=== PATIENT | male | born 1980 | race African-American/Black ===

== ENCOUNTER 2024-09-16 09:09 | Emergency (ER) | payer MEDICAID ==
[~2024-09-16] VITALS: Ht 170.2 cm; Wt 67.7 kg
[2024-09-16 09:20] VITALS: BP 131/100; PULSE 94; O2SAT 100
[2024-09-16 10:14] VITALS: RESP 16
[2024-09-16] MEDS: ketorolac trometh 15mg/ml vial 15 MG/ML ML IM ONE (10:14)
[2024-09-16 10:50] VITALS: TEMP 97.8
== END 2024-09-16 11:00 | disposition home or self-care (01) ==
LOC: ER 09:10
DX: M25.571 Pain in right ankle and joints of right foot (principal)
CPT/HCPCS: 29515; 73610; 96372; 99283; J1885; L1930